=== PATIENT | male | born 1950 | race Caucasian/White ===

== ENCOUNTER → 2024-12-05 07:54 | Outpatient (BNVA) | payer OTHER, SELFPAY | PROVIDERS: Referring Provider Nurse Practitioner Family; Visit Provider Specialist | DX: R25.1 Tremor, unspecified (principal); R03.0 Elevated blood-pressure reading, without diagnosis of hypertension | CPT/HCPCS: 99204 ==

== ENCOUNTER → 2025-01-17 07:40 | Outpatient (BNVA) | payer OTHER, SELFPAY | PROVIDERS: Referring Provider Specialist; Visit Provider Specialist | DX: G25.3 Myoclonus (principal); R29.818 Other symptoms and signs involving the nervous system | CPT/HCPCS: 95819 ==